=== PATIENT | female | born 2000 | race Caucasian/White ===

== ENCOUNTER 2022-11-03 09:14 | Inpatient (IN) | payer BC, OTHER ==
[2022-11-03] VITALS (9 sets, daily range): BP systolic 127–159; BP diastolic 74–92; PULSE 90–117; TEMP 98.2–98.3
[~2022-11-03] VITALS: Ht 162.6 cm; Wt 119.5 kg
[~2022-11-03 09:14] MED LIST: ASPIRIN E.C. 8181 MG PO; NATURAL IRON65 MG
--- NOTE | 2022-11-03 18:55 | NUR ---
Ambulatory to unit for cytotec, accompanied by spouse. Oriented to room, monitor, plan of care, questions invited and answered.
--- NOTE | 2022-11-03 20:00 | NUR ---
Off monitor, up to bathroom
[2022-11-03 20:12] LABS: COLLECTION METHOD CLEAN CATCH
[2022-11-03 20:16] LABS: BASO % 0.2 % (0.0-2.0); EOS # 0.2 K/mm3 (0.0-0.7); EOS % 1.6 % (0.0-4.0); GRAN % 76.1 % (42.2-75.2); HEMOGLOBIN 10.4 g/dl (12.5-16.0); LYMPH # 1.4 K/mm3 (1.2-3.4); LYMPH % 14.9 % (20.0-51.0); MEAN CELL VOLUME 81 fl (80.0-100.0); MEAN CORPUSCULAR HEMOGLOBIN 26 pg (27-31); MEAN CORPUSCULAR HGB CONC 32 g/dl (33.0-37.0); MEAN PLATELET VOLUME 9.8 fl (7.4-10.4); MONO # 0.6 K/mm3 (0.1-0.6); MONO % 6.3 % (1.7-9.3); PLATELET COUNT 293 K/mm3 (130-400); RED BLOOD COUNT 4.04 M/mm3 (4.10-5.30); REDCELL DISTRIBUTION WIDTH-CV 17.2 % (11.5-14.5)
[2022-11-03 20:17] LABS: HEMATOCRIT 32.8 % (37.0-47.0)
[2022-11-03 20:21] LABS: PH 6.5 (5.0-8.5); URINE APPEARANCE Clear (CLEAR/HAZY); URINE BLOOD 2+ (NEGATIVE); URINE COLOR Yellow (YELLOW); URINE GLUCOSE Negative (NEGATIVE); URINE KETONE Negative (NEGATIVE); URINE NITRATE Negative (NEGATIVE); URINE PROTEIN(semi-quant) 3+ (NEGATIVE); URINE UROBILINOGEN 0.2 E.U/dL (0.2-1.0)
[2022-11-03 20:36] LABS: ALBUMIN 1.7 gm/dL (3.5-5.0); BILIRUBIN,TOTAL 0.1 mg/dL (0.2-1.2); CALCIUM 8.9 mg/dL (8.4-10.2); CREATININE, serum 0.79 mg/dL (0.57-1.11); POTASSIUM 3.9 mmol/L (3.5-4.5); TOTAL PROTEIN 5.6 gm/dL (6.2-8.1)
--- NOTE | 2022-11-03 22:00 | NUR ---
Off monitor. Up to bathroom and to move around room.
--- NOTE | 2022-11-03 23:50 | NUR ---
Monitor recording irregular contraction and uterine irritability. Pt denies feeling cramps or contractions. Off monitor, up to bathroom.
[2022-11-04] VITALS (78 sets, daily range): BP systolic 113–179; BP diastolic 56–101; PULSE 73–115; TEMP 97.9–98.4
--- NOTE | 2022-11-04 00:30 | NUR ---
EFM not tracing FHR. This RN into room. Pt had repositioned self to RL. This RN continunes in room attempting to adjust monitor. Difficult to obtain tracing R/T pt's obese abd. Can hear heart tones briefly but not recording. To LL. FHT's tracing obtained. Pillow provided to support abd in LL position.
--- NOTE | 2022-11-04 02:30 | NUR ---
EFM with loss of tracing. Difficult to maintain tracing r/t pt obesity and pt sleeping position. FHR tracing resumed spont [facility] Pt sleeping
--- NOTE | 2022-11-04 03:40 | NUR ---
FHT's not tracing. Pt sleeping had shifted to WL. This RN into room. Pt wakens. States "I really need to get up and move around. My hip really hurts" Off monitor, up to bathroom.
--- NOTE | 2022-11-04 04:12 | NUR ---
Back to bed. Attempt to obtain FHT tracing. Up to bathroom, belly band placed for assistance in monitoring,
--- NOTE | 2022-11-04 08:10 | NUR ---
DR SANDY BEDSIDE.SVE /-3.
--- NOTE | 2022-11-04 10:00 | NUR ---
PT SITTING UP ON THE SIDE OF THE BED FOR EPIDURAL PLACEMENT.LR INFUSING PER PROTOCOL. MATERNAL VITAL SIGNS STABLE. EFM AND TOCO DIFFICULTY TRACING DUE TO MATERNAL POSITIONING. 1003 SINGLE SHOT ADMINISTERED PER JENS BENJAMIN.PT TOELRATED PROCEDURE WELL.
--- NOTE | 2022-11-04 13:00 | NUR ---
PT HAVING RECURRENT LATE DECELS INTO THE 70-90'S.PT IS REPOSITIONED, LR BOLUS INFUSING, PITOCIN STOPPED. 1323 DR ROLES NOTIFIED OF THE PT STATUS.DR ADVISED THIS RN TO CONTINUE TO SHUT THE PITOCIN OFF AND CONTINUE WITH THE POSITION CHANGES.
--- NOTE | 2022-11-04 14:42 | NUR ---
DR SANDY NOTIFIED OF PT RECOVERY FROM RECURRENT LATE DECELS.PHYSICIAN NOTIFIED THIS NURSE TO TURN THE PITOCIN BACK ON AT 10 MU.THIS RN NOTIFIED THE PHYSICIAN THAT THE PITOCIN HAS BEEN STOPPED FOR AN HOUR AND A HALF. DR SANDY RESPONDED, "THATS FINE". PER OUR POLICY,THIS NURSE RESTARTED THE PITOCIN AT 2 MU.
--- NOTE | 2022-11-04 18:11 | NUR ---
DR SANDY BEDSIDE.SVE PER DR SANDY /2.ULTRASOUND PERFORMED TO DETERMINE HEAD DOWN.PT TOLERATED PROCEDURE WELL.
--- NOTE | 2022-11-04 18:45 | NUR ---
Pt currently on her left side, peanut ball under her right leg. Pt reports feeling some discomfort in her right hip/groin area that does not seem to be going away. She tells RN that she last pushed her epidural button approximately 10 minutes ago. RN instructed pt to try and push the button again in approximately 3-5 minutes. Pt verbalizes understanding.
--- NOTE | 2022-11-04 19:00 | NUR ---
RN continues to observe late decels on the FHR tracing, pt repositioned to her right side with the peanut ball under the left leg to attempt to resolved the late decels. RN remains at bedside monitoring tracing. Interuptions in the tracing noted due to the change in maternal position, with US repositioned to obtain FHR.
--- NOTE | 2022-11-04 19:15 | NUR ---
1899-RN remains at bedside, turns pt from her right side back to her left side in an attempt to resolve recurrent late decels. Pt on right side with peanut ball under left leg. 1904-Pt repositioned to slight left tilt with peanut ball under left knee. Slight improvement in recurrent late decels but continue to occur. Pt repositioned back to her right side, small peanut ball under the left ankle. 1909-Dr Leung at bedside to assess strip. Discussess with pt and spouse that the fetus is continuing to have decelerations with the heart rate and there is some difficulty in determining at times when the decels are occuring due to the pt contractions are not tracing very well. Dr Leung discusses with pt that she would like to place an IUPC and an FSE so that the pt's contractions and so that the heart rate can be better monitored. Pt verbalizes understanding and agrees. 1911-Dr Leung SVE --, places IUPC at this time. 1913-Dr Leung places FSE at this time. Plugged into the cord and secured to pt leg.
--- NOTE | 2022-11-04 19:30 | NUR ---
191-Pt repositioned back to her right side with a peanut ball. RN attempts to resolve recurrent late decels with repositioning. 1921-Pt repositioned back to her left side with a peanut ball under the right ankle due to there continuing to be recurrent late decels. 1929-RN continues to remain at bedside monitoring strip. Pt reports feeling more comfortable at this time.
--- NOTE | 2022-11-04 19:45 | NUR ---
1934-Pt turned to her left side with a peanut ball under the right ankle by RN to try and resolved the recurrent late decels. 1939-Pt turned to the right side at this time. 1944-Pt repositioned back to her left side, recurrent late decels continue to occur. RN remains at bedside monitoring strip.
--- NOTE | 2022-11-04 20:00 | NUR ---
Pt pulled up and repositioned in bed into [facility] with her legs bent and frogged to open the pelvis. heart rate tolerating this position fair at this time with RN remaining at bedside monitoring strip. Pt coping well with labor process.
--- NOTE | 2022-11-04 20:15 | NUR ---
2000-Dr Roles at the bedside to assess pt and labor progress. Discusses with pt examining her to check progress due to heart rate continues to have recurrent late decels. 2005-SVE per Dr Roles, anterior lip/100/0-+1. Pt placed back into [facility] to aid in descent. 2009-RN remains at bedside monitoring strip.
--- NOTE | 2022-11-04 20:30 | NUR ---
RN remains at bedside, monitoring strip. Pt reports she is feeling some discomfort and pain in her right hip/groin area. She is tolerating it at this time but is aware it is there. RN continues to observe recurrent late decels on tracing, with good recovery noted. Plan of care on going.
--- NOTE | 2022-11-04 20:45 | NUR ---
2029-RN remains at bedside monitoring pt and strip. 2034-Dr Roles at bedside, SVE /+1, informs pt it is time to start pushing. Pt verbalizes understanding. 2039-Pt repositioned and pt feet placed on footplates. Educated pt on pushing and how to push. Pt verbalizes understanding. 2041-RN begins pushing with pt at this time. Pt demonstrating pushing technique well and doing well with stamina. 2044- strip continues to have recurrent late decels with good recovery. Early decels noted when pt is pushing with late decels occuring after pt finishes pushing with a contraction. RN remains at bedside.
--- NOTE | 2022-11-04 21:00 | NUR ---
RN continues pushing with pt, she pushes with each contraction well. RN audibly hears accels just before palpating a contraction. Early decels occur with pushing with recurrent late decels occurring after the pt finishes pushing and contraction is gone. heart rate continues to have good recovery from the late decels.
--- NOTE | 2022-11-04 21:15 | NUR ---
Pt continues to push with each contraction, is pushing well and maintaining her stamina. Early decels noted at the start of when pt begins pushing and when finished, with contraction done, late decels noted. heart rate recovers well but is slightly slower to return to baseline. RN remains at bedside monitoring pt and fetus.
--- NOTE | 2022-11-04 21:30 | NUR ---
RN continues at bedside, pt continues pushing well with each contraction. Pt having an increase in pain to her right hip/groin that she is reporting to be very uncomfortable. RN informs pt that I can ask anesthesia about giving her a bolus of medicine but because she is so close to delivery, anesthesia may not want to do that. RN informs pt that the best way to relieve the pain is to deliver the baby. Pt voices her understanding. RN discusses with anesthesia pt's options and anesthesia returns to pt's bedside. Pt voices understanding and RN continues to be at pt's bedside and continues to push with pt.
--- NOTE | 2022-11-04 21:45 | NUR ---
Pt continues to push with spouse and RN support. Pt tells RN she is doing fair, she is getting somewhat tired but is doing well. strip continues to trace late decels with recovery taking longer with the last pushing effort. 2144-Dr Leung enters room to assess pt and status.
--- NOTE | 2022-11-04 21:59 | NUR ---
2144-Dr Roles at bedside assessing pt pushing and decent. RN pushing with pt with each contraction with late decels noted with slow return to baseline. Roles talking with pt and spouse about assisting pt with delivery by using a vacuum to help deliver fetus. Pt agrees to plan of care. 2149-IUPC and FSE removed by Dr Leung, external monitors placed. Contractions palpated by RN and pt is able to feel ctx some too. Roles prepares for delivery. 2151-Vacuum placed by Dr Roles at this time. 2153-Vacuum pressure placed by Dr Roles. Pt begins pushing with the contraction. 2154-Pressure released by Dr Xochitl. 2155-Vacuum pressure on by Dr Roles, pt pushing with contraction well, Dr Roles pulling on vacuum as pt pushes with some descent noted. Ctx ends and pressure of vacuum released by Dr Xochitl. 8-Vacuum pressure on by Dr Xochitl, pt pushing with contraction, Dr Roles pulling on vacuum, delivery of head noted, vacuum pressure released and vacuum removed. Pt instructed to continue pushing for delivery. 2158-Pt continues pushing with ctx, with delivery of shoulder and the rest of body. bulb suctioned by Dr Leung, placed on mother's abdomen, dried and stimulated. Cord clamped by Dr Leung and cut by FOB. Infant taken to radiant warmer to continue to stimulate infant. Spontaneous crying, movement of extremities noted and continues to be assessed by nursery RN. 2205-Infant placed skin to skin with mother at this time. Spouse at bedside.
--- NOTE | 2022-11-04 22:00 | NUR ---
2145- Roles at bedside, discusses with pt and spouse status and pt progress. Discusses with pt that the fetus' heart rate is becoming slower to recover to baseline and discusses with pt helping with delivery by using a vacuum. Pt and spouse verbalize their understanding and agree with Dr Leung recommendation for the vacuum. 2150-IUPC removed at this time by Dr Leung. 215-FSE removed at this time by Dr Leung, US replaced for monitoring. 2152-Vacuum in place by Dr Leung. 2154-Pressure applied to vacuum by Dr Leung. Pt instructed to push with this contraction. Roles applies the pull force as pt pushes. descent observed. 2155-Vacuum pressure released by Dr Leung. 2156-Vacuum placed and pressure applied by Dr Leung. Pt instructed to push as Dr Leung applies the pull force. descent observed and pressure released and vacuum taken off by Dr Leung as contraction is done and pt rests. 2157-Vacuum placed by Dr Leung, pressure applied, and pt instructed to push. Dr Leung applies the pull force as pt pushes. 2158- head is delivered, vacuum is removed by Dr Leung and pt is instructed to continue pushing. 2159-Pt continues pushing and body is delivered, bulb suctioned by Dr Leung, placed on mother's abdomen and dried and stimulated.
[2022-11-05 00:05] VITALS: BP 149/81; PULSE 105
[2022-11-05 02:00] VITALS: BP 134/85; PULSE 97; TEMP 98.3
[2022-11-05 08:26] VITALS: BP 149/93; PULSE 102; TEMP 97.7
--- NOTE | 2022-11-05 09:46 | NUR ---
Initial visit; Parents thanked [employer] for offering congratulations and God's blessings for the of their son. [facility] thanked family for choosing [facility].
[2022-11-05 12:51] VITALS: BP 153/102; PULSE 96
[2022-11-05 16:40] VITALS: BP 137/81; PULSE 100; TEMP 98.8
[2022-11-05 21:00] VITALS: BP 170/88; PULSE 105; TEMP 97.9
[2022-11-06] VITALS: BP 114/63; PULSE 89; TEMP 98.7
[2022-11-06 08:00] VITALS: BP 125/73; PULSE 85; TEMP 97.7
[2022-11-06] MEDS ORDERED: IBU800 M1 PO (08:34)
[2022-11-06] MEDS ORDERED: PROCARDIA XL 6060 MG PO (08:34)
== END 2022-11-06 11:35 | disposition home or self-care (01) | DRG 807 ==
LOC: OB 09:14 → LDR 18:51 → OB 18:51
PROVIDERS: ADMIT Obstetrics & Gynecology
PROC: 10D07Z6 Extraction of Products of Conception, Vacuum, Via Natural or Artificial Opening (ICD-10-PCS; principal; 2022-11-04)
PROC: 0KQM0ZZ Repair Perineum Muscle, Open Approach (ICD-10-PCS; 2022-11-04)
PROC: 10H07YZ Insertion of Other Device into Products of Conception, Via Natural or Artificial Opening (ICD-10-PCS; 2022-11-04)
PROC: 3E033VJ Introduction of Other Hormone into Peripheral Vein, Percutaneous Approach (ICD-10-PCS; 2022-11-04)
DX: O14.14 Severe pre-eclampsia complicating childbirth (principal); Z37.0 Single live birth; Z3A.37 37 weeks gestation of pregnancy; O70.1 Second degree perineal laceration during delivery; O76 Abnormality in fetal heart rate and rhythm complicating labor and delivery
CPT/HCPCS: J2590; J2791; J2795; J7120